=== PATIENT | female | born 1970 | race Caucasian/White ===

== ENCOUNTER 2024-12-16 13:47 | Inpatient (IN) | payer OTHER, SELFPAY ==
[2024-12-16] VITALS (41 sets, daily range): BP systolic 118–149; BP diastolic 59–113; BMI 43.6; BMI 42.3
--- NOTE | 2024-12-16 08:06 | ED.GENMED ---
History of Present Illness
General
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
Source: patient
Exam Limitations: none
Time Seen by Provider: 12/16/24 07:54
History of Present Illness
History of Present Illness:
54yoF with a history of hypertension, hyperlipidemia, insulin-dependent type 2 diabetes, obesity, factor V leiden, and anemia presenting for evaluation of vaginal bleeding. Symptoms began around 9 PM last night. Patient has been bleeding heavily
since then. She uses a menstrual cup and has been having to empty her cup every 5 to 15 minutes and states it is overflowing. She is passing large clots. Patient also reports having chest discomfort starting at 2am as well as dizziness. Patient
reportedly had a syncopal episode on the way to the ED. She denies any chest pain currently. Patient is also experiencing lower abdominal/pelvic discomfort which she states feels like severe menstrual cramps. Patient is worried that her uterine
fibroid may have burst. She took ibuprofen and aspirin prior to arrival due to passing clots. She was told that she had uterine fibroids 18 years ago during a section. She was reportedly told that she needed surgery but this never
occurred. She has not seen a water superintendent in over 10 years.
Past History
Past History
ED Past Medical History: HTN, Hypercholesterolemia and IDDM
ED Past Surgical History: Appendectomy and Cholecystectomy
Social History
Tobacco: Non-smoker
Alcohol: None
Personal:
Living: with family
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
Family History
Family History: Adopted
Phy Exam
Physical Exam
Physical Exam:
Patient appears pale, fatigued, keeps eyes closed during exam
General Physical Exam
General Presentation: moderate distress
General Skin: warm, dry and pale
General Habitus: normal
General Mental: alert
ENT Exam
ENT Exam: normocephalic
Cardiovascular Exam
Cardiovascular Exam: regular rate/rhythm
Pulmonary Exam
Pulmonary Exam: lungs clear, no respiratory distress, no rales, no crackles and no rhonchi
Gastrointestinal Exam
Gastrointestinal Exam: soft, non distended and other (Mild tenderness in suprapubic region)
Genitourinary Exam Female
Exam Female: other (Large amount of bleeding with several large clots noted on speculum exam. Bleeding overflowing menstrual cup onto stretcher. )
Neurological Exam
Neurological Exam: alert
[place] Coma Scale
Eye Opening: Spontaneous
Verbal Response: Oriented
Motor Response: Obeys Commands
GCS Total Score: 15
Skin Exam
Skin Exam: normal color, warm/dry and pallor
Psychiatric Exam
Psychiatric Exam: normal mood/affect
Course
Orders/Labs/Results
Orders:
Orders
12/16/24 08:02
Pelvis & Transvaginal US [US Pelvis W Transvag Combined] Urgent
Comment:
Reason For Exam: vaginal bleeding
12/16/24 08:03
Test Result ONCE
12/16/24 08:07
Electrocardiogram (*1) Urgent
Reason for Study: Chest Pain
EKG- Treatment ONCE
12/16/24 08:25
Type+Screen Urgent
Complete Blood Count/With Diff Urgent
Comprehensive Metabolic Panel Urgent
HCG, Serum Qualitative Screen Urgent
Iron Urgent
Comment: ADD ON
Total Iron Binding Urgent
Comment: ADD ON
Troponin I Urgent
12/16/24 08:32
Ferritin Urgent
Comment: ADD ON
PTT Urgent
Prothrombin Time Urgent
TSH Urgent
Comment: ADD ON
Vitamin B12 Urgent
Comment: ADD ON
Vitamin D, 25-Oh Urgent
12/16/24 09:05
Blood Bank Products [* Blood Bank Products] Urgent
Blood Bank Products: *Packed RBC Leuko(PRBC's)
Quantity: 2
Transfuse Today: Yes
Reason: Anemia
12/16/24 09:15
Tranexamic Acid 1000 mg/100 ml [Tranexamic Acid] 1,000 mg in 100 ml IV ONCE
12/16/24 09:17
Consult MECHANICAL SERVICE SPECIALIST [MECHANICAL SERVICE SPECIALIST CONSULT] Urgent
Consulting Provider: Yamileth Mccloud
Was physician already notified: Yes
12/16/24 09:40
ABO2 Urgent
BBK Wristband Number:
Associate notified that ABO2 has been ordered: ATIFF-ER
Date: 12/16/24
Time: 08:38
Single Corner Cutter ID: [id number]
12/16/24 10:00
Tranexamic Acid 1000 mg/100 ml [Tranexamic Acid] 1,000 mg in 100 ml IV ONCE
12/16/24 10:59
Add On- LAB Routine
Tests Added?: iron,tibc,ferritin,b12
12/16/24 11:02
Add On- LAB Routine
Tests Added?: tsh,vit d
12/16/24 12:08
Admit/Transfer Patient As Directed
Co-Sign Provider:
Level of Care: Inpatient admission
Assign to:: Medical/Surgical
Physician / Group: Hospitalist
Diagnosis: Vaginal bleeding, anemia
Reason for Hospitalization: Vaginal bleeding, anemia
Expected length of stay greater than two midnights?: Yes
ELOS- Estimated Length of Stay in days: 1
I certify the patient meets the requirements for IP care: Yes
PRN Pain Medication Management As Directed
May give lesser potent ordered pain med per pt: Yes
preference::
Protocol:: Medication orders for pain may be administered in a
manner that supports deferring to patient preference
when the pt is:
- Requesting an ordered lesser potent pain medication.
Least to most potent pain medications are defined
as: acetaminophen < NSAID < tramadol < opioids
(morphine, oxycodone, hydromorphone).
- Requesting a lesser dose of the same medication IF
ORDERED.
- Requesting a less intrusive route of administration
if both routes are prescribed by the provider (PO <
IV).
12/16/24 12:09
Code Status As Directed
Resuscitation Status: Full Code
Abnormal Lab Results
12/16/24 12/16/24
08:25 08:32
RBC 3.59 L 10^6/uL
(4.20-5.40)
Hgb 5.9 L* g/dL
(12.0-16.0)
Hct 22.1 L %
(37.0-47.0)
MCV 61.6 L fL
(81.0-99.0)
MCH 16.4 L pg
(27.0-31.0)
MCHC 26.7 L g/dL
(33.0-37.0)
RDW 19.8 H %
(11.5-14.5)
Abs Immat Gran (auto) 0.1 H 10^3/uL
(0-0.05)
Immature Gran % 0.6 H %
(0-0.5)
Lymphocytes % 18.6 L %
(20.5-51.1)
PT 15.0 H Sec
(11.4-14.6)
APTT 21.1 L Sec
(23.4-35.0)
Sodium 133 L mmol/L
(135-145)
Carbon Dioxide 18 L mmol/L
(22-30)
Glucose 242 H mg/dl
(70-99)
Ferritin 4.0 L ng/ml
(11.1-264.0)
Total Protein 6.1 L g/dl
(6.3-8.2)
Crossmatch IS Only See Detail
12/16/24 08:25
12/16/24 08:25
Vital Signs
Initial and Last Documented VS:
Initial Vital Signs
Temp Pulse Resp BP Pulse Ox
96.8 F L 101 18 142/82 99
12/16/24 07:31 12/16/24 07:31 12/16/24 07:31 12/16/24 07:31 12/16/24 07:31
Last Documented Vital Signs
Temp Pulse Resp BP Pulse Ox
99.2 F 107 23 133/78 98
12/16/24 11:37 12/16/24 13:00 12/16/24 13:00 12/16/24 12:45 12/16/24 12:45
MDM/Problems Addressed
Differential Diagnosis Includes:
54yoF here with vaginal bleeding since last night. Overflowing menstrual cup every 5-15 minutes. C/o dizziness and had a syncopal episode en route to the hospital. She is ill appearing and pale. She keeps her eyes closed during exam. HR 101, BP
stable. Differential diagnosis includes but is not limited to: dysfunctional uterine bleeding, endometrial hyperplasia, symptomatic anemia
Initial ED plan: Check CBC, CMP, coags, type and screen, troponin/EKG, and pelvic ultrasound.
*EKG
Interpreted by ED Provider?: Yes
EKG Intrepretation Date: 12/16/24
Heart Rate: 98
Rate: normal
Rhythm: sinus
[place]: left axis deviation
Interval: normal interval
QRS Pattern: normal QRS
Ischemia: no ischemia
*Critical Care Note
Total Time (30-74mins, 75-104mins- exclusive of procedures): 35
Update Note
Update Note:
Hemoglobin is 5.9. hCG negative. Consent obtained and 2 units PRBCs ordered. Case discussed with water superintendent on-call, Dr. Mccloud. IV TXA ordered per OBGYN recommendations. Patient admitted for further management. Pelvic ultrasound results
pending at time of admission.
ED Attending Note
-
Portions of this chart may have been created with voice recognition software.� Occasional wrong word or��sound alike� substitutions may have occurred due to the inherent limitations of voice recognition software.
Discharge Plan
Departure
Patient Disposition: Admit
Date of Disposition: 12/16/24
Time of Disposition: 09:21
Presentation/result/management discussed w/ accepting MD/DO: Hospitalist
Discharge Problem:
Dysfunctional uterine bleeding, Symptomatic anemia
Prescriptions:
No Action
cetirizine [Zyrtec] 10 mg Tablet
10 mg PO DAILY
aspirin 325 mg Tablet
650 mg PO DAILYPRN PRN (Reason: mild pain)
glipizide 5 mg Tablet Extended Release 24hr
5 mg PO BID
Theragen Tablet
1 tab PO DAILY
flaxseed oil 1,000 mg Capsule
1,000 mg PO DAILY
ferrous sulfate 325 mg (65 mg iron) Tablet
325 mg PO DAILY
ibuprofen [Advil] 200 mg Tablet
400 mg PO DAILYPRN PRN (Reason: mild pain)
metformin 500 mg Tablet Extended Release 24 Hr
1,000 mg PO BID
loratadine 10 mg Tablet
10 mg PO HS
rosuvastatin [Crestor] 5 mg Tablet
5 mg PO QPM
cholecalciferol (vitamin D3) [Vitamin D3] 25 mcg (1,000 unit) Tablet
25 mcg PO DAILY
insulin glargine [Lantus Solostar U-100 Insulin] 100 unit/mL (3 mL) Insulin Pen
60 unit SC BID
magnesium oxide 400 mg magnesium Tablet
400 mg PO BID
Referrals:
Cheryl Wilson MD [Family Provider] -
Interventions
Interventions:
*Risk Screen - Suicide Last Done: 12/16/24 07:31
*General Assessment Last Done: 12/16/24 07:31
*Neglect/Abuse Screening Last Done: 12/16/24 07:31
ED- Fall Risk Assessment Last Done: 12/16/24 09:48
*ED COVID-19 Vaccine History Last Done: 12/16/24 09:48
ED-Female Genitourinary Assessment Last Done: 12/16/24 09:48
Discharge Date and Time
Print Language: MAURITANIAN
[2024-12-16 08:52] LABS: INR 1.13
[2024-12-16 08:57] LABS: % Basophils 1.2 % (0-2); % Eosinophils 5.5 % (0-6); % Immature Granulocytes 0.6 % (0-0.5); % Lymphocytes 18.6 % (20.5-51.1); % Monocytes 6.7 % (1.7-9.3); % Neutrophils 67.4 % (42.2-75.2); Absolute Basophils 0.1 10^3/uL (0-0.2); Absolute Eosinophils 0.5 10^3/uL (0-0.7); Absolute Immature Granulocytes 0.1 10^3/uL (0-0.05); Absolute Lymphocytes 1.6 10^3/uL (1.2-3.4); Absolute Monocytes 0.6 10^3/uL (0.1-0.6); Absolute Neutrophils 5.7 10^3/uL (1.4-6.5); Hematocrit 22.1 % (37.0-47.0); Hemoglobin 5.9 g/dL (12.0-16.0); Mean Corp Hgb Conc. 26.7 g/dL (33.0-37.0); Mean Corpuscular Hgb 16.4 pg (27.0-31.0); Mean Corpuscular Volume 61.6 fL (81.0-99.0); Mean Platelet Volume 10.2 fL (7.4-10.4); Nucleated Red Blood Cells % 0.2 %; Platelet Count 352 10^3/uL (130-400); Red Blood Cell Count 3.59 10^6/uL (4.20-5.40); Red Cell Dist. Width 19.8 % (11.5-14.5); White Blood Cell Count 8.5 10^3/uL (4.8-10.8)
[2024-12-16 08:58] LABS: ALT (SGPT) 23 U/L (0-35); AST (SGOT) 31 U/L (14-36); Albumin 3.7 g/dl (3.5-5.0); Alkaline Phosphatase 79 U/L (38-126); Blood Urea Nitrogen 14 mg/dl (7-17); Carbon Dioxide 18 mmol/L (22-30); Chloride 104 mmol/L (98-107); Glucose 242 mg/dl (70-99); Potassium 4.8 mmol/L (3.5-5.1); Sodium 133 mmol/L (135-145); Total Bilirubin 0.3 mg/dl (0.2-1.3); Total Protein 6.1 g/dl (6.3-8.2); eGFR > 60.00
[2024-12-16 08:59] LABS: HCG, Serum Qualitative Screen Negative
[2024-12-16 09:12] LABS: APTT 21.1 Sec (23.4-35.0)
[2024-12-16 09:15] LABS: Anisocytosis 1+; Hypochromasia 2+; Normal RBC Morphology No; Ovalocytes Slight; Polychromasia 1+
[2024-12-16 09:35] LABS: Troponin I < 0.012 ng/ml
[2024-12-16] MEDS: TRANEXAMIC ACID 100 IV (10:19)
--- NOTE | 2024-12-16 10:54 | HPS.HSE ---
Family Physician
-
Family Physician: Cheryl Wilson MD
Chief Complaint
-
Vaginal bleeding-heavy
History of Present Illness
54-year-old female with heavy vaginal bleeding. She uses a menstrual cup and has had to empty every 10 to 15 minutes with possible voiding. She also is passing blood clots. She she felt some dizziness and had a syncopal episode today. She is
also experiencing some menstrual cramps. Patient took ibuprofen and aspirin. She has not seen her VIDEO EDITING INTERN doctor for the past 10 years. Patient states that she usually gets her. Every 34 days and usually last for 2 weeks.
Medical History
Past Medical History
Past Medical History: Reports Other
Additional Past Medical History:
Hypertension, hyperlipidemia, diabetes, migraine, sleep apnea, GERD, history of uterine fibroids, ovarian cyst, nephrolithiasis, Emily thyroiditis, anemia, factor V [place], anxiety and depression
Past Surgical History: Reports Other
Additional Past Surgical History:
Appendectomy, cholecystectomy, tonsillectomy,
Social History
Tobacco: Non-smoker
Alcohol: Occasional
Drug: None
Employment: Not Employed
Family History
Family History: Diabetes
Allergies / Home Medications
Allergies reflects when Allergies were last updated in [facility].
Home Medications with original date entered in [facility]
Allergy/Medication List:
Allergies
Allergy/AdvReac Type Severity Reaction Status Date / Time
No Known Allergies Allergy Unverified 12/16/24 07:44
Home Medications
aspirin 325 mg tablet 650 mg PO DAILYPRN PRN mild pain 12/16/24
cetirizine 10 mg tablet (Zyrtec) 10 mg PO DAILY 12/16/24
cholecalciferol (vitamin D3) 25 mcg (1,000 unit) tablet (Vitamin D3) 25 mcg PO DAILY 12/16/24
ferrous sulfate 325 mg (65 mg iron) tablet 325 mg PO DAILY 12/16/24
flaxseed oil 1,000 mg capsule 1,000 mg PO DAILY 12/16/24
glipizide 5 mg tablet, extended release 24 hr 5 mg PO BID 12/16/24
ibuprofen 200 mg tablet (Advil) 400 mg PO DAILYPRN PRN mild pain 12/16/24
insulin glargine 100 unit/mL (3 mL) subcutaneous pen (Lantus Solostar U-100 Insulin) 60 unit SC BID 12/16/24
loratadine 10 mg tablet 10 mg PO HS 12/16/24
magnesium oxide 400 mg PO BID 12/16/24
metformin 500 mg tablet,extended release 24 hr 1,000 mg PO BID 12/16/24
rosuvastatin 5 mg tablet (Crestor) 5 mg PO QPM 12/16/24
therapeutic multivitamin 1 tab PO DAILY 12/16/24
Review of Systems
-
A 12 point ROS was completed and negative except as noted: Yes
Abdomen/GI: Denies Abdominal Pain, Nausea, Vomiting, Diarrhea, Bloody Stools, Black Stools or Anorexia
Physical Exam
Vital Signs
Vital Signs
Temp Pulse Resp BP Pulse Ox
96.8 F L 96 15 127/72 100
12/16/24 07:31 12/16/24 10:00 12/16/24 10:00 12/16/24 09:00 12/16/24 10:00
Physical Exam
General: Comfortable and Conversant
HEENT: Neck Nontender (pale mucosa)
Respiratory: Clear
Cardiac: S1/S2 and Regular Rhythm
GI: Non Tender and Normal Bowel Sounds
Musculoskeletal: No Edema
Neuro: AO x 3 and Nonfocal/grossly intact
Psych: Intact Judgment/Insight
Laboratory Results
-
12/16/24 08:25
12/16/24 08:25
Laboratory Results
PT 15.0 Sec (11.4-14.6) H 12/16/24 08:32
INR 1.13 12/16/24 08:32
APTT 21.1 Sec (23.4-35.0) L 12/16/24 08:32
Total Bilirubin 0.3 mg/dl (0.2-1.3) 12/16/24 08:25
AST 31 U/L (14-36) 12/16/24 08:25
ALT 23 U/L (0-35) 12/16/24 08:25
Alkaline Phosphatase 79 U/L (38-126) 12/16/24 08:25
Troponin I < 0.012 ng/ml 12/16/24 08:25
Impression/Plan
-
IMPRESSION/PLAN:
# Severe symptomatic acute blood loss anemia secondary to vaginal bleeding.
Transfuse 2 units of blood
IV iron for DERIAN
VIDEO EDITING INTERN evaluation
Patient reports history of fibroids
Pelvic ultrasound
# Diabetes
Check hemoglobin A1c
Metformin thousand twice daily, glipizide 5 mg twice daily, Lantus 60 units twice daily as outpatient
Lowered the dose of Lantus on a controlled diet here
Accu-Cheks and sliding scale coverage
# Hyperlipidemia-continue statin
# Migraines
# GERD-add Pepcid
# Sleep apnea-could not tolerate CPAP and did not go back for sleep study. Advised that she needs to go back
# Nephrolithiasis by history
# Ovarian cyst
# Factor V Leiden
# History of Emily thyroiditis-check TSH
# Anxiety depression does not seem to be on any medicines at present
# Obesity per BMI 43-needs weight loss
# SCDs for DVT prophylaxis
# Full code
Discussed with nursing at bedside
Discussed with daughter at bedside
[2024-12-16 12:07] LABS: Vitamin D, 25-OH*** 41.9 ng/mL (30-80)
[2024-12-16 12:21] LABS: TSH 4.14 uIU/ml (0.47-4.68)
[2024-12-16 12:40] LABS: Vitamin B12 761 pg/ml (239-931)
[2024-12-16 16:41] LABS: Iron 36 ug/dl (37-170)
[2024-12-16 16:50] LABS: Percent Saturation 7 % (20-50); Total Iron Binding Capacity 487 ug/dl (265-497)
--- NOTE | 2024-12-16 18:06 | CS.OBGYN ---
Consult Summary - SCRAP SEPARATOR
-
Pt seen and examined. Full consult dictated.
In summary----
Pt is a 54 y/o menstruating female with increasing menorrhagia. Presenting to the ER with heavy bleeding, hgb of 5.9, tachycardia and feeling faint.
Has a h/o menorrhagia for the last several years but worsening in this last year. No outpatient brass wind instrument maker evaluation for this. Current period started 1 week ago- came at expected time. Several days of heavy gushes of bleeding. The 'gushes' usually
would stop after 4-5 hours but this time the vaginal bleeding didn't slow down and kept going. Pt presented to the ER b/c of the heavy bleeding/ feeling lightheaded and dizzy.
Hgb 5.9 in ER/ Tachy. Finishing up 2nd unit of PRBCs now. Pt did get 1 dose of IV Lysteda in ER which did stop pt's bleeding.
Pelvic u/s was done
Pelvic exam was done which showed minimal bleeding on exam
Plan:
Getting 2 units pRBCs now
Bleeding stopped after getting an IV dose of Lysteda.
Pt should not be given any further doses of Lysteda b/c pt is Factor V Leiden mutation Positive
Unfortunately pt can't be given any hormonal meds, like IV premarin or OCPs because of Factor V and its increased risk of DB.
I would recommend having HEME/Onc see pt so they can give their recommendations regarding what medications pt could get to decrease vaginal bleeding that would not increase her risk of a thomboembolism.
No acute need for other meds at this moment but will want to have that information should bleeding acutely increase
Continue to watch pt's vaginal bleeding and hgb trend
Should transfuse to keep Hgb 8 or higher
[2024-12-16 19:26] LABS: Hematocrit 26.3 % (37.0-47.0); Hemoglobin 7.9 g/dL (12.0-16.0)
[2024-12-16] MEDS: CRESTOR 5 MG PO (20:18)
--- NOTE | 2024-12-16 22:00 | PTCARENOTE ---
Pt transferred from ED.Pt ambulated into room with assistance. Pt AAOX3, able to make needs known, VSS. Pt oriented to unit, call nguyễn within reach. Pt has no complaints of vaginal bleeding at this time. Will continue with current plan.
[2024-12-16 22:05] LABS: Glucose - Point of Care 292 mg/dl (70-99)
[2024-12-16] MEDS: GLUCOTROL XL (EXTENDED RELEASE) 5 MG PO (22:14)
[2024-12-16] MEDS: LANTUS 0.3 UNITS SC (22:14)
[2024-12-16] MEDS: GLUCOPHAGE XR EXTENDED RELEASE 1000 MG PO (22:21)
[2024-12-16] MEDS: PEPCID 20 MG PO (22:21)
[2024-12-16] MEDS: MAG-TAB SR 84 MG PO (22:22)
[2024-12-16] MEDS: CLARITIN 10 MG PO (22:22)
[2024-12-17 02:21] LABS: Hematocrit 25.3 % (37.0-47.0); Hemoglobin 7.7 g/dL (12.0-16.0); Mean Corp Hgb Conc. 30.4 g/dL (33.0-37.0); Mean Corpuscular Hgb 19.7 pg (27.0-31.0); Mean Corpuscular Volume 64.7 fL (81.0-99.0); Mean Platelet Volume 10.1 fL (7.4-10.4); Platelet Count 372 10^3/uL (130-400); Red Blood Cell Count 3.91 10^6/uL (4.20-5.40); Red Cell Dist. Width 23.6 % (11.5-14.5); White Blood Cell Count 11.8 10^3/uL (4.8-10.8)
[2024-12-17 07:29] LABS: Glucose - Point of Care 194 mg/dl (70-99)
[2024-12-17 07:56] VITALS: BP 146/86
[2024-12-17 08:29] LABS: Calcium 8.5 mg/dl (8.4-10.2); Carbon Dioxide 21 mmol/L (22-30); Chloride 107 mmol/L (98-107); Estimated Creatinine Clearance > 125 ml/min; Glucose 169 mg/dl (70-99); Potassium 4.4 mmol/L (3.5-5.1); Sodium 138 mmol/L (135-145); eGFR > 60.00
[2024-12-17 08:43] LABS: Hematocrit 25.5 % (37.0-47.0); Hemoglobin 7.5 g/dL (12.0-16.0); Mean Corp Hgb Conc. 29.4 g/dL (33.0-37.0); Mean Corpuscular Hgb 19.3 pg (27.0-31.0); Mean Corpuscular Volume 65.6 fL (81.0-99.0); Red Blood Cell Count 3.89 10^6/uL (4.20-5.40); Red Cell Dist. Width 23.6 % (11.5-14.5); White Blood Cell Count 9.4 10^3/uL (4.8-10.8)
[2024-12-17] MEDS: GLUCOPHAGE XR EXTENDED RELEASE 1000 MG PO ×2 (08:46→16:58)
[2024-12-17] MEDS: MAG-TAB SR 84 MG PO ×2 (08:47→21:14)
[2024-12-17] MEDS: VITAMIN D3 (cholecalciferol) 25 MCG PO (08:47)
[2024-12-17] MEDS: LANTUS 0.3 UNITS SC (08:47)
[2024-12-17] MEDS: THERAGRAN 1 TABLET PO (08:47)
[2024-12-17] MEDS: ZYRTEC 10 MG PO (08:47)
[2024-12-17] MEDS: PEPCID 20 MG PO ×2 (08:47→21:15)
[2024-12-17] MEDS: FEOSOL 325 MG PO (08:47)
[2024-12-17 09:03] LABS: Blood Urea Nitrogen 8 mg/dl (7-17)
[2024-12-17 09:14] LABS: Mean Platelet Volume 10.3 fL (7.4-10.4); Platelet Count 297 10^3/uL (130-400)
[2024-12-17] MEDS: GLUCOTROL XL (EXTENDED RELEASE) 5 MG PO ×2 (10:03→16:58)
[2024-12-17 11:44] LABS: Glucose - Point of Care 279 mg/dl (70-99)
--- NOTE | 2024-12-17 11:58 | W.PN.GYN.DG ---
Today's Communication / Plan
-
d/c home as per hospitalist service
Ok to d/c home after pt gets her one unit of blood today from a scanning clerk standpoint
Materials Branch Chief f/u already arranged for pt
Assessment / Plan
-
Assessment: 54 y/o adm for heavy vaginal bleeding and symptomatic anemia. S/p 2 units of PRBCs in the ER and getting another unit today.
Bleeding has dramatically improved with dose of lysteda pt was given in the ER. Hgb is approp s/p transfusion and stable.
Pt is hemodynamically stable
Agree with one more unit of pRBCs to get pt's hgb over 8.
Plan:
After the extra unit of blood ok for d/c from a scanning clerk standpoint
Heavy bleeding has ceased, hgb is raised and stable, and no longer symptomatic from anemia
If pt does go home today she has a follow up appointment with me in the office tomorrow at 2 pm where we will continue the scanning clerk eval with pap and EMBx and
arrange for pt to get a P4 IUD as an outpt to manage her menorrhagia
P4 IUD would be approp given her Factor 5 Leiden mutation
Subjective / Objective Data
Subjective Data
Feels so much better today! No further being lightheaded or dizzy. Min vaginal spotting.
Pt has tolerated the transfusions well
Objective Data
Vital Signs
Temp Pulse Resp BP Pulse Ox
98.2 F 91 18 146/86 100
12/17/24 07:56 12/17/24 07:56 12/17/24 07:56 12/17/24 07:56 12/17/24 07:56
Intake & Output
12/16/24 12/17/24 12/18/24
06:59 06:59 06:59
Intake Total 740 / 740
Balance 740 / 740
Intake:
Oral fluids 240 / 240
Blood Product Amount Infused ( 500 / 500
mL)
Packed Rbc Leukoreduced Unit 250 / 250
[id number]
Packed Rbc Leukoreduced Unit 250 / 250
[id number]
Other:
Number of approximated MODERATE 2
amounts of urine
Physical Exam
-
Abdomen: Soft and Nontender
Extremities: No Calf Tenderness and No Edema
Other Findings:
Min blood on her pad
Data Reviewed
-
Lab Data
12/17/24 07:19
12/17/24 07:19
[2024-12-17 12:47] VITALS: BP 148/92
[2024-12-17 13:09] VITALS: BP 150/82
[2024-12-17 15:00] VITALS: BP 169/88
[2024-12-17 15:41] LABS: Glucose - Point of Care 181 mg/dl (70-99)
--- NOTE | 2024-12-17 15:49 | CM ---
corporate development manager reviewed patient's chart and met with patient and patient lives with her spouse, daughter and sometimes son in a one story home, patient is independent with adl's and ambulation, no dme, patient drives, home when stable no needs, no
needs.
Plan; Home when stable
PCP: Cheryl Wilson
Pharmacy; [facility]
[2024-12-17 15:58] VITALS: BP 161/95
--- NOTE | 2024-12-17 16:49 | W.PN.HOSP.TC ---
Today's Communication/Plan
-
Getting blood
CBC in the morning
If stable discharge tomorrow.
Assessment / Plan
Assessment / Plan
Patient feels Much better. Bleeding has gotten better
Pallor better
Cardiovascular system S1-S2 appreciated
Chest clear to auscultation
Abdomen soft and nontender
USS-Scanning endometrial stripe. Differential diagnosis includes endometrial hyperplasia, carcinoma and polyp. Sonohysterogram is recommended.Simple left ovarian cyst.Nonvisualization of the right ovary
# Severe symptomatic acute blood loss anemia secondary to vaginal bleeding.
Transfused 2 units of blood, one more 12/17/24
IV iron for DERIAN
PLUMBER evaluation appreciated
Pelvic ultrasound as above
Needs pelvic exam and endometrial biopsy
PLUMBER considering IUD as outpatient
# Diabetes
Hemoglobin A1c discontinued as this will not be accurate
Metformin thousand twice daily, glipizide 5 mg twice daily, Lantus 60 units twice daily as outpatient
Lowered the dose of Lantus on a controlled diet here, sliding scale added
Lantus 40 units twice daily
Accu-Cheks and sliding scale coverage
# Hyperlipidemia-continue statin
# Migraines
# GERD-continue Pepcid
# Sleep apnea-could not tolerate CPAP and did not go back for sleep study. Advised that she needs to go back
# Nephrolithiasis by history
# Ovarian cyst
# Factor V Leiden
# History of Emily thyroiditis-check TSH
# Anxiety depression does not seem to be on any medicines at present
# Obesity per BMI 43-needs weight loss
# SCDs for DVT prophylaxis
# Full code
Discussed with nursing
Anticipated Discharge: Within 24 hours
Subjective/Interval History
-
Date of Service: December 17, 2024
Objective Data
-
Labs:
Laboratory Results
12/17/24
07:19
WBC 9.4
Hgb 7.5 L
Hct 25.5 L
Plt Count 297 D
Sodium 138
Potassium 4.4
Chloride 107
Carbon Dioxide 21 L
BUN 8
Creatinine 0.6
Glucose 169 H
Calcium 8.5
Vital Signs:
Vital Signs
Temp Pulse Resp BP Pulse Ox
98.8 F 90 18 161/95 99
12/17/24 15:58 12/17/24 15:58 12/17/24 15:58 12/17/24 15:58 12/17/24 15:00
I&O
12/16/24 12/17/24 12/18/24
06:59 06:59 06:59
Intake Total 740 / 740 250 / 250
Balance 740 / 740 250 / 250
[2024-12-17] MEDS: FERRLECIT 110 MG IV (16:55)
[2024-12-17 16:57] LABS: Glucose - Point of Care 240 mg/dl (70-99)
[2024-12-17] MEDS: NOVOLOG FLEXPEN-LOW RESISTANCE 2 UNITS SC (16:58)
[2024-12-17] MEDS: CRESTOR 5 MG PO (16:59)
[2024-12-17 20:24] LABS: Glucose - Point of Care 148 mg/dl (70-99)
--- NOTE | 2024-12-17 21:00 | PTCARENOTE ---
Patient refused pneumatic compression sleeves. Patient educated that doctor specifically asked her to where SCDs and that these prevent blood clots. Will continue with current plan.
[2024-12-17] MEDS: LANTUS 0.4 UNITS SC (21:13)
[2024-12-17] MEDS: CLARITIN 10 MG PO (21:15)
[2024-12-17 23:48] VITALS: BP 175/89
[2024-12-18 04:07] VITALS: BP 146/77
--- NOTE | 2024-12-18 04:29 | PTCARENOTE ---
Patient having increased vaginal bleeding and cramping. Wayne Bauer MUTUAL FUND ACCOUNTANT notified. Labs due in AM. No new orders obtained. Will continue with current plan.
[2024-12-18 06:00] VITALS: BMI 42.0
[2024-12-18 07:47] VITALS: BP 150/85
[2024-12-18 07:50] LABS: Hematocrit 27.2 % (37.0-47.0); Hemoglobin 8.3 g/dL (12.0-16.0); Mean Corp Hgb Conc. 30.5 g/dL (33.0-37.0); Mean Corpuscular Hgb 21.1 pg (27.0-31.0); Mean Corpuscular Volume 69.2 fL (81.0-99.0); Platelet Count 338 10^3/uL (130-400); Red Blood Cell Count 3.93 10^6/uL (4.20-5.40); White Blood Cell Count 9.7 10^3/uL (4.8-10.8)
--- NOTE | 2024-12-18 08:30 | W.PN.GYN.DG ---
Today's Communication / Plan
-
Ok for d/c home from a obstetrics/gynecology nurse standpoint. Will see pt in the office this week for ongoing evaluation and treatment
Assessment / Plan
-
Assessment:
54 y/o adm 12/16/2024 for heavy vaginal bleeding and symptomatic anemia. S/p 2 units of PRBCs in the ER 12/16 and 1 unit of pRBCs yesterday 12/17.
Pt is hemodynamically stable- pulse has come down to normal
Bleeding had dramatically improved with dose of lysteda pt was given in the ER and pt with minimal bleeding at this point.
Hgb over 8.0
Plan:
ok for d/c from a obstetrics/gynecology nurse standpoint
Heavy bleeding has stopped, hgb is >8.0, and pt no longer symptomatic from anemia
As an outpt we will continue the obstetrics/gynecology nurse evaluation with pap and EMBx to rule out hyperplasia/ malignancy
Assuming normal testing we will arrange for pt to get a P4 IUD in the office to manage her menorrhagia
P4 IUD would be approp given her Factor 5 Leiden mutation
Subjective / Objective Data
Subjective Data
Uneventful 24 hrs. Small amount of bleeding and cramping earlier today. Nothing compared what pt got admitted for
Pt got another unit of pRBCs yesterday which she jayjay well
No CP/SOB/Leg pain. Denies being lightheaded or dizzy
Objective Data
Vital Signs
Temp Pulse Resp BP Pulse Ox
98.3 F 83 18 150/85 95
12/18/24 07:47 12/18/24 07:47 12/18/24 07:47 12/18/24 07:47 12/18/24 07:47
Intake & Output
12/17/24 12/18/24 12/19/24
06:59 06:59 06:59
Intake Total 740 / 740 910 / 910
Balance 740 / 740 910 / 910
Intake:
Oral fluids 240 / 240 660 / 660
Blood Product Amount Infused ( 500 / 500 250 / 250
mL)
Packed Rbc Leukoreduced Unit 250 / 250
[id number]
Packed Rbc Leukoreduced Unit 250 / 250
[id number]
Packed Rbc Leukoreduced Unit 250 / 250
[id number]
Other:
Number of approximated MODERATE 2 2
amounts of urine
Data Reviewed
-
Lab Data
12/18/24 07:07
12/17/24 07:19
[2024-12-18] MEDS: MAG-TAB SR 84 MG PO (09:17)
[2024-12-18] MEDS: PEPCID 20 MG PO (09:17)
[2024-12-18] MEDS: GLUCOPHAGE XR EXTENDED RELEASE 1000 MG PO (09:17)
[2024-12-18] MEDS: FEOSOL 325 MG PO (09:17)
[2024-12-18] MEDS: ZYRTEC 10 MG PO (09:17)
[2024-12-18] MEDS: VITAMIN D3 (cholecalciferol) 25 MCG PO (09:17)
[2024-12-18] MEDS: THERAGRAN 1 TABLET PO (09:17)
[2024-12-18] MEDS: GLUCOTROL XL (EXTENDED RELEASE) 5 MG PO (09:17)
[2024-12-18] MEDS: LANTUS 0.4 UNITS SC (09:19)
[2024-12-18] MEDS: NOVOLOG FLEXPEN-LOW RESISTANCE 1 UNITS SC (09:20)
[2024-12-18 09:25] LABS: Glucose - Point of Care 170 mg/dl (70-99)
[2024-12-18 11:48] LABS: Glucose - Point of Care 275 mg/dl (70-99)
[2024-12-18] MEDS: NOVOLOG FLEXPEN-LOW RESISTANCE 3 UNITS SC (12:45)
[2024-12-18] MEDS: FERRLECIT 110 MG IV (13:50)
--- NOTE | 2024-12-18 14:06 | W.PN.HOSP.TC ---
Today's Communication/Plan
-
Discharge
Assessment / Plan
Assessment / Plan
Patient feels Much better. Bleeding has gotten better
Pallor better
Cardiovascular system S1-S2 appreciated
Chest clear to auscultation
Abdomen soft and nontender
USS-Scanning endometrial stripe. Differential diagnosis includes endometrial hyperplasia, carcinoma and polyp. Sonohysterogram is recommended.Simple left ovarian cyst.Nonvisualization of the right ovary
# Severe symptomatic acute blood loss anemia secondary to vaginal bleeding.
Transfused 3 units of blood
IV iron for DERIAN
SUPPORT SERVICES TECH evaluation appreciated
Pelvic ultrasound as above
Needs pelvic exam and endometrial biopsy
SUPPORT SERVICES TECH considering IUD as outpatient
# Diabetes
Hemoglobin A1c discontinued as this will not be accurate
Metformin thousand twice daily, glipizide 5 mg twice daily, Lantus 60 units twice daily as outpatient
Lowered the dose of Lantus on a controlled diet here, sliding scale added
Lantus OP dose at home
Accu-Cheks and sliding scale coverage
# Hyperlipidemia-continue statin
# Migraines
# GERD-continue Pepcid
# Sleep apnea-could not tolerate CPAP and did not go back for sleep study. Advised that she needs to go back
# Nephrolithiasis by history
# Ovarian cyst
# Factor V Leiden
# History of Emily thyroiditis-check TSH
# Anxiety depression does not seem to be on any medicines at present
# Obesity per BMI 43-needs weight loss
# SCDs for DVT prophylaxis
# Full code
Discussed with nursing
More than 30 minutes spent in discharge including
Final examination of the patient
Summarizing hospital stay
Instructions for continuing care to all relevant caregivers
Preparation of discharge records, prescriptions, and referral forms
Total time spent (in minutes): 32 min
Discharge
Anticipated Discharge: Today
Subjective/Interval History
-
Date of Service: December 18, 2024
Objective Data
-
Labs:
Laboratory Results
12/18/24
07:07
WBC 9.7
Hgb 8.3 L
Hct 27.2 L
Plt Count 338
Vital Signs:
Vital Signs
Temp Pulse Resp BP Pulse Ox
98.3 F 83 18 150/85 95
12/18/24 07:47 12/18/24 07:47 12/18/24 07:47 12/18/24 07:47 12/18/24 07:47
I&O
12/17/24 12/18/24 12/19/24
06:59 06:59 06:59
Intake Total 740 / 740 910 / 910
Balance 740 / 740 910 / 910
--- NOTE | 2024-12-18 14:14 | W.DS.TRANS ---
Addendum entered and electronically signed by Soheila Clarke MD 12/18/24 18:32:
Dictation- [id number]
Original Note:
DC Summary - Office Associate
-
Discharge Instructions:
Discharge Diagnosis/Procedures Vaginal bleeding
Anemia
Diabetes
Sleep apnea
High cholesterol
Diet Diabetic, Carb Controlled
Activity As tolerated
Driving Restrictions As prior to admission
Instructions: Heavy Periods (DC)
Stand-Alone Forms:
Changes to Home Medications: Yes
Discharge Medications:
DC Medications w/original date entered in [place] ([place]
cetirizine 10 mg tablet (Zyrtec) 10 mg PO DAILY Allergies #0 tabs 12/17/24
cholecalciferol (vitamin D3) 25 mcg (1,000 unit) tablet (Vitamin D3) 25 mcg PO DAILY Supplement #0 tabs 12/17/24
famotidine 20 mg tablet 20 mg PO BID Gastrointestinal issue #0 tabs 12/17/24
ferrous sulfate 325 mg (65 mg iron) tablet 325 mg PO DAILY anemia #0 tabs 12/17/24
glipizide 5 mg tablet, extended release 24 hr 5 mg PO BID Diabetes #0 tabs 12/17/24
insulin glargine 100 unit/mL (3 mL) subcutaneous pen (Lantus Solostar U-100 Insulin) 60 unit (0.6 mL) SC BID Diabetes #0 mL 12/17/24
loratadine 10 mg tablet 10 mg PO HS Allergies #0 tabs 12/17/24
magnesium oxide 400 mg PO DAILY Supplement #0 tabs 12/17/24
metformin 500 mg tablet,extended release 24 hr 1,000 mg (2 x 500 mg) PO BID Diabetes #0 tabs 12/17/24
rosuvastatin 5 mg tablet (Crestor) 5 mg PO QPM High cholesterol #0 tabs 12/17/24
therapeutic multivitamin 1 tab PO DAILY Supplement #0 tabs 12/17/24
Home Medication Changes
new
Pepcid
Pending Results: No
--- NOTE | 2024-12-18 14:39 | CM ---
Home no needs
Plan; Home no needs.
[2024-12-18 16:12] VITALS: BP 168/90
== END 2024-12-18 16:25 | disposition home or self-care (01) | DRG 760 ==
LOC: 4 WEST ACU 13:47
PROVIDERS: Physician Assistant; ADMITTING PHYSICIAN Hospitalist; CONSULT PHYSICIAN Obstetrics & Gynecology Gynecology; EMERGENCY PHYSICIAN Emergency Medicine; FAMILY PHYSICIAN Family Medicine
PROC: 30233N1 Transfusion of Nonautologous Red Blood Cells into Peripheral Vein, Percutaneous Approach (ICD-10-PCS; 2024-12-16)
DX: N92.0 Excessive and frequent menstruation with regular cycle (principal); D62 Acute posthemorrhagic anemia; D68.51 Activated protein C resistance; Z68.41 Body mass index [BMI] 40.0-44.9, adult; N84.0 Polyp of corpus uteri; E11.9 Type 2 diabetes mellitus without complications; E78.00 Pure hypercholesterolemia, unspecified; I10 Essential (primary) hypertension; G43.909 Migraine, unspecified, not intractable, without status migrainosus; G47.30 Sleep apnea, unspecified; E06.3 Autoimmune thyroiditis; F32.A Depression, unspecified; F41.9 Anxiety disorder, unspecified; K21.9 Gastro-esophageal reflux disease without esophagitis; E66.9 Obesity, unspecified; Z79.84 Long term (current) use of oral hypoglycemic drugs; Z79.4 Long term (current) use of insulin; Z79.82 Long term (current) use of aspirin; Z79.899 Other long term (current) drug therapy
CPT/HCPCS: 36430; 76830; 76856; 80048; 80053; 82306; 82607; 82728; 82962; 83540; 83550; 84443; 84484; 84703; 85014; 85018; 85025; 85027; 85610; 85730; 86850; 86900; 86901; 86920; 93005; 96374; 96376; 99291; J2916; P9016